=== PATIENT | female | born 1960 | race Caucasian/White ===

== ENCOUNTER 2021-08-27 12:45 | Emergency (ER) | payer OTHER ==
[~2021-08-27] VITALS: Ht 165.1 cm; Wt 100.0 kg
--- NOTE | 2021-08-27 13:16 | PHYS DOC ---
Past History Past Medical History: Diabetes, High Cholesterol, Hypertension, Hypothyroid Past Surgical History: No Surgical History Smoking: Non-smoker Alcohol Use: None Drug Use: None Adult General Chief Complaint Chief Complaint: ALTERED MENTAL STATUS [facility] HPI Patient is a 61-year-old female presenting with son for dysarthria via POV. Onset was first noticed this morning. Patient lives at home with son with last reported known well time being yesterday at 6 PM. Son providing majority of history due to significant dysarthria from patient. Reports she has history of insulin-dependent type 2 diabetes, hypothyroidism, high blood pressure, high cholesterol and seasonal allergies which she has been compliant with all medications for without blood thinners/anticoagulants. States that he ate dinner last night and patient went to her room. This morning, son's girlfriend noticed that patient was having extensive difficulty communicating and articulating words which concerned her prompting them to come into the ER for evaluation today. She has no prior history of CVA. No reported trauma or falls. She is in no pain, just is frustrated that she cannot articulate. This has never happened to her before Review of Systems Review of Systems Fourteen body systems of review of systems have been reviewed. See HPI for pertinent positives and negative responses, other saavedra all other systems are negative, non-pertinent or non-contributory Physical Exam Physical Exam General: Appears well, non toxic, and comfortable Skin: Warm, dry. Normal for ethnicity. HEENT: Atraumatic. PERRLA. Moist mucous membranes. Neck: Trachea midline. Normal ROM. Respiratory: Normal WOB. CTAB w/o w/r/r. No tachypnea. Cardiovascular: Regular rate and rhythm. Normal peripheral perfusion. No edema. Abdomen: Soft. Non tender. No distension. Back: Normal ROM. Musculoskeletal: No swelling or deformity. Neuro: Alert and oriented x 4. MAEE. GCS 15. Normal FNF. Negative pronator drift. Normal heel to smith. Normal Valeria. CN II-XII intact. Normal strength and sensation. Normal speech. Psych: Normal affect and mood. Current Patient Data Vital Signs Vital Signs Date Time Temp Pulse Resp B/P (MAP) Pulse Ox O2 Delivery O2 Flow Rate FiO2 08/27/21 13:32 97.2 80 16 188/105 (132) 98 Vital Signs Date Time Temp Pulse Resp B/P (MAP) Pulse Ox O2 Delivery O2 Flow Rate FiO2 2/18/22 13:58 77 18 152/103 (119) 98 08/27/21 13:32 97.2 Lab Results Laboratory Tests Test 08/27/21 13:07 08/27/21 13:27 08/27/21 13:50 Glucose (Fingerstick) 282 mg/dL White Blood Count 9.4 x10^3/uL Red Blood Count 5.22 x10^6/uL Hemoglobin 15.6 g/dL Hematocrit 46.7 % Mean Corpuscular Volume 90 fL Mean Corpuscular Hemoglobin 30 pg Mean Corpuscular Hemoglobin Concent 34 g/dL Red Cell Distribution Width 13.2 % Platelet Count 217 x10^3/uL Neutrophils (%) (Auto) 69 % Lymphocytes (%) (Auto) 21 % Monocytes (%) (Auto) 6 % Eosinophils (%) (Auto) 3 % Basophils (%) (Auto) 1 % Neutrophils # (Auto) 6.5 x10^3uL Lymphocytes # (Auto) 2.0 x10^3/uL Monocytes # (Auto) 0.6 x10^3/uL Eosinophils # (Auto) 0.3 x10^3/uL Basophils # (Auto) 0.1 x10^3/uL Prothrombin Time 9.6 SEC Prothromb Time International Ratio 0.9 Activated Partial Thromboplast Time 22 SEC Sodium Level 135 mmol/L Potassium Level 4.2 mmol/L Chloride Level 97 mmol/L Carbon Dioxide Level 28 mmol/L Anion Gap 10 Blood Urea Nitrogen 14 mg/dL Creatinine 1.2 mg/dL Estimated GFR (Cockcroft-Gault) 45.5 Glucose Level 280 mg/dL Calcium Level 9.2 mg/dL Troponin I High Sensitivity 5 ng/L SARS-CoV-2 Antigen (Rapid) Negative Current Medications Medications (Trade) Dose Ordered Sig/Kelsie Route PRN Reason Start Time Stop Time Status Last Admin Dose Admin Iohexol (Omnipaque 350 Mg/ml) 100 ml 1X ONCE IV 08/27/21 13:30 08/27/21 13:43 DC 08/27/21 14:00 EKG EKG EKG ordered and interpreted by myself 1405 hrs. as sinus rhythm at 77 bpm, prolonged QRS at 132 otherwise unremarkable intervals, no axis deviation, no STEMI Radiology/Procedures Radiology/Procedures XR CHEST 1V 08/27/2021 1:32 PM INDICATION: Dysarthria COMPARISON: None available TECHNIQUE: Portable frontal view of the chest is provided. FINDINGS: The cardiomediastinal silhouette is within normal limits. Lungs are clear. There are no significant pleural effusions. There is no pulmonary vascular congestion. No pneumothorax. No suspicious osseous abnormality. IMPRESSION: There is no acute cardiopulmonary process. Electronically signed by: Nicole Bradley MD (08/27/2021 2:07 PM) [id number] /////////////////////////////////////////////////////////////////////////// CT HEAD WITHOUT CONTRAST History: Reason: dysarthria / Spl. Instructions: / History: Comparison: None. Procedure: Axial images are obtained of the head from the skull base through the vertex without IV contrast. Findings: At the right cerebellopontine angle there is a slightly hyperdense mass measuring 2.1 cm AP by 2.5 cm transverse by 2 cm craniocaudal. There is no surrounding edema. There is no significant mass effect on the fourth ventricle. There is patchy cortical and subcortical hypodensity in the left parietal occipital lobe. There is minimal generalized cerebral atrophy. The call-white matter differe ntiation is otherwise maintained. No midline shift, acute whemorrhage, or extra- axial fluid collection is identified. Basilar cisterns are patent. Bone windows demonstrate no acute calvarial abnormality. The visualized paranasal sinuses are clear. Mastoid air cells are well aerated. IMPRESSION: 1. There is patchy cortical and subcortical hypodensity in the left parietal oc cipital lobe. Acute/subacute infarct or nonspecific cerebral edema are considerations. Recommend MR brain with and without contrast. 2. There is a slightly hyperdense mass at the right cerebellopontine angle. There is no surrounding edema or significant mass effect on the fourth ventricle. Primary considerations are a meningioma or schwannoma. ///////////////////////////////////////////////////////////////////// CTA HEAD AND NECK W/WO CONTRAST Clinical Indication: Reason: dysarthria, Comparison: CT head without contrast, earlier same day. Technique: Helical CT imaging from inferior to the aortic arch to the skull vertex is performed after 75 cc of Omnipaque [address] angiogram protocol. 3-D MIP reconstructions of the cervical carotid arteries and [place] of [place] are performed. PQRS Compliance Statement - Stenosis calculations for CT, MR and conventional angiography are based upon measurement of the distal ICA diameter in accordance with the NASCET methodology. Stenosis calculations for carotid ultrasound studies are derived from validated velocity criteria which are known to correlate with the NASCET methodology. Findings: No central pulmonary embolus. Aortic arch branches are patent. Common carotid arteries and carotid bifurcations are patent. The cervical internal carotid arteries are patent. The cervical vertebral arteries are patent. The right vertebral artery slightly dominant. There is slight leftward deviation of the basilar artery due to the cerebellopontine angle mass on the right. The posterior cerebral arteries are patent. There is persistent origin of the left posterior cerebral artery. The distal internal carotid arteries are patent, are relatively small caliber. Anterior cerebral arteries are patent. The right middle cerebral arteries are patent. There is abrupt truncation of a left M2 branch which may be due to thrombus, images 240-242. Multiple more distal left middle cerebral artery branches are contrast opacified. This would fit with the findings on noncontrast CT head. The right cerebellar pontine angle mass demonstrates homogeneous enhancement. Dural venous sinuses are unremarkable. The left thyroid lobe is small in size. No obvious opacification of the upper lungs. There are bridging anterior osteophytes of C7-T1. IMPRESSION: 1. There is abrupt truncation of a left M2 middle cerebral artery branch could be due to thrombus. Suggest MRI. 2. There is no significant stenosis of the cervical carotid or vertebral arteries. 3. Homogeneously enhancing right cerebellopontine angle mass. Heart Score C/O Chest Pain: No Risk Factors: Risk Factors: DM, Current or recent (<one month) smoker, HTN, HLP, family history of CAD, obesity. Risk Scores: Risk Factors: DM, Current or recent (<one month) smoker, HTN, HLP, family history of CAD, obesity. Course & Med Decision Making Course & Med Decision Making ABCs unremarkable [id number] glucose, history aided by son at bedside, physical exam and comprehensive ER work-up concerning for acute ischemic stroke with subsequent dysarthria and a high risk patient with numerous comorbid conditions and a cerebellar pontine mass of unknown etiology I contacted [facility] stroke hotline and spoke with Dr. Malik. Case reviewed in addition to images, completed stroke with no indication for TPA, IR or other em ergent transport to their facility. As such, hospitalist at [facility] contacted for transfer Hospitalist accepted patient for hospital transfer. Agreed need for transfer for MRI for better evaluation of completed stroke in addition to questionable brain mass. Multiple attempts were made to contact neurology attending at [facility] but these were unsuccessful I updated patient and son at bedside on entirety of ER work-up and need for hospital transfer for which they were amenable, all questions and concerns addressed prior to transfer via EMS. Of note, patient still having appreciable dysarthria but improved since ER arrival Critical Care Time This patient required critical care. Due to the fact that the patient required a significant amount of one on one physician - patient contact time, ordering and review of studies, arranging urgent treatment with development of a management plan, evaluation of patients response to treatment with frequent reassessments, and discussions with other providers this patient required 35 minutes of critical care time. Critical care time was indicated due to the inherent instability and/or potential for instability in this patient. The critical care time that is allocated to this patient is above and beyond any time spent on any other billable procedures performed on this patient. Dragon Disclaimer Dragon Disclaimer This electronic medical record was generated, in whole or in part, using a voice recognition dictation system. NIH Stroke Scale: NIH Stroke Scale Response (Comments) Value Level of Consciousness: 0 Alert/Responsive 0 LOC Questions: 2 Answers neither correct 2 LOC Commands: 1 Performs one task 1 Best Gaze: 1 Partial gaze palsy 1 Visual: 0 No visual loss 0 Facial Palsy: 0 Normal, symmetrical 0 Motor - Left Arm 0 No drift 0 Motor - Right Arm 0 No drift 0 Motor - Left Leg 0 No drift 0 Motor: Right Leg 0 No drift 0 Limb Ataxia: 0 Absent 0 Sensory: 0 No loss 0 Best Language: 2 Severe aphasia 2 Dysathria: 2 Severe 2 Extinction and Inattention: 0 Normal 0 Total 8 Departure Departure: Impression: Primary Impression: Ischemic stroke Additional Impressions: Pontine lesion Dysarthria due to acute cerebrovascular accident (CVA) Disposition: 02 SHORT TERM HOSPITAL ([facility]) Admitting Physician: Other (dr bernardo) Condition: STABLE Referrals: PCP,UNKNOWN (PCP) Problem Qualifiers VENANCIO SILVERMAN DO Aug 27, 2021 13:16
[2021-08-27] MEDS ORDERED: IOHEXOL 350 MG/ML 100 ML VIAL. IV ONE (13:30)
[2021-08-27 13:39] LABS: BASO # 0.1 x10^3/uL (0.0-0.2); BASO % 1 % (0-3); EOS # 0.3 x10^3/uL (0.0-0.7); EOS % 3 % (0-3); HEMATOCRIT 46.7 % (36.0-47.0); HEMOGLOBIN 15.6 g/dL (12.0-15.5); LYMPH % 21 % (24-48); MEAN CORPUSCULAR HEMOGLOBIN 30 pg (25-35); MEAN CORPUSCULAR HGB CONC 34 g/dL (31-37); MEAN CORPUSCULAR VOLUME 90 fL (79-100); MONO # 0.6 x10^3/uL (0.0-1.1); MONO % 6 % (0-9); NEUT # 6.5 x10^3uL (1.8-7.7); NEUT % 69 % (31-73); PLATELET COUNT 217 x10^3/uL (140-400); RED BLOOD COUNT 5.22 x10^6/uL (3.50-5.40); RED CELL DISTRIBUTION WIDTH 13.2 % (11.5-14.5); WHITE BLOOD COUNT 9.4 x10^3/uL (4.0-11.0)
[2021-08-27 13:50] LABS: CALCIUM 9.2 mg/dL (8.5-10.1); CREATININE 1.2 mg/dL (0.6-1.0); GFR 45.5; POTASSIUM 4.2 mmol/L (3.5-5.1)
--- NOTE | 2021-08-27 14:07 | RAD ---
PQRS Compliance Statement: One or more of the following individualized dose reduction techniques were utilized for this examinat ion: 1. Automated exposure control 2. Adjustment of the mA and/or kV according to patient size 3. Use of iterative reconstruction technique CT HEAD WITHOUT CONTRAST History: Reason: dysarthria / Spl. Instructions: / History: Comparison: None. Procedure: Axial images are obtained of the head from the skull base through the vertex without IV co ntrast. Findings: At the right cerebellopontine angle there is a slightly hyperdense mass measuring 2.1 cm AP by 2.5 cm transverse by 2 cm craniocaudal. There is no surrounding edema. There is no significant mass effect on the fourth ventricle. There is patchy cortical and subcortical hypodensity in the left parietal occipital lobe. There is minimal generalized cerebral atrophy. The call-white matter differentiation is otherwise leandro ntained. No midline shift, acute whemorrhage, or extra-axial fluid collection is identified. Basilar cisterns are patent. Bone windows demonstrate no acute calvarial abnormality. The visualized paranasal sinuses are clear. Mastoid air cells are well aerated. IMPRESSION: 1. There is patchy cortical and subcortical hypodensity in the left parietal occipital lobe. Acute/s ubacute infarct or nonspecific cerebral edema are considerations. Recommend MR brain with and without contrast. 2. There is a slightly hyperdense mass at the right cerebellopontine angle. There is no surrounding edema or significant mass effect on the fourth ventricle. Primary considerations are a meningioma or schwannoma. FOR INTERNAL CODING PURPOSES Critical result: Findings discussed with VENANCIO SILVERMAN DO at 08/27/2021 1:57 PM. RESULT CODE: (C) Electronically signed by: Helio Wilhelm MD (08/27/2021 2:05 PM) [facility]
--- NOTE | 2021-08-27 14:10 | RAD ---
XR CHEST 1V 08/27/2021 1:32 PM INDICATION: Dysarthria COMPARISON: None available TECHNIQUE: Portable frontal view of the chest is provided. FINDINGS: The cardiomediastinal silhouette is within normal limits. Lungs are clear. There are no significant pleural effusions. There is no pulmonary vascular congestion. No pneumothora x. No suspicious osseous abnormality. IMPRESSION: There is no acute cardiopulmonary process. Electronically signed by: Nicole Bradley MD (08/27/2021 2:07 PM) [id number]
--- NOTE | 2021-08-27 14:16 | EKG ---
[address] [address] Test Date: 2021-08-27 Test Time: 13:57:10 Pat Name: NOAH KEARNEY Department: Room: Gender: F Retail District Manager: MÓNICA : 1960 Requested By: VENANCIO SILVERMAN Order Number: [id number] Reading MD: Long Rinaldi Measurements Intervals [place] Rate: 77 P: 12 UT: 178 QRS: 63 QRSD: 132 T: 3 QT: 404 QTc: 459 Interpretive Statements SINUS RHYTHM RIGHT BUNDLE BRANCH BLOCK Electronically Signed On 08-29-2021 13:59:38 [employer] by Long Rinaldi
--- NOTE | 2021-08-27 14:19 | RAD ---
PQRS Compliance Statement: One or more of the following individualized dose reduction techniques were utilized for this examinat ion: 1. Automated exposure control 2. Adjustment of the mA and/or kV according to patient size 3. Use of iterative reconstruction technique CTA HEAD AND NECK W/WO CONTRAST Clinical Indication: Reason: dysarthria, Comparison: CT head without contrast, earlier same day. Technique: Helical CT imaging from inferior to the aortic arch to the skull vertex is performed after 75 cc of Omnipaque [address] angiogram protocol. 3-D MIP reconstructions of the cervi kya carotid arteries and [place] of [place] are performed. PQRS Compliance Statement - Stenosis calculations for CT, MR and conventional angiography are based u samir measurement of the distal ICA diameter in accordance with the NASCET methodology. Stenosis calcu lations for carotid ultrasound studies are derived from validated velocity criteria which are known t o correlate with the NASCET methodology. Findings: No central pulmonary embolus. Aortic arch branches are patent. Common carotid arteries and carotid bi furcations are patent. The cervical internal carotid arteries are patent. The cervical vertebral yashira marilee are patent. The right vertebral artery slightly dominant. There is slight leftward deviation of the basilar artery due to the cerebellopontine angle mass on the right. The posterior cerebral arteri es are patent. There is persistent origin of the left posterior cerebral artery. The distal int ernal carotid arteries are patent, are relatively small caliber. Anterior cerebral arteries are paten t. The right middle cerebral arteries are patent. There is abrupt truncation of a left M2 branch whic h may be due to thrombus, images 240-242. Multiple more distal left middle cerebral artery branches a re contrast opacified. This would fit with the findings on noncontrast CT head. The right cerebellar pontine angle mass demonstrates homogeneous enhancement. Dural venous sinuses ar e unremarkable. The left thyroid lobe is small in size. No obvious opacification of the upper lungs. There are bridging anterior osteophytes of C7-T1. IMPRESSION: 1. There is abrupt truncation of a left M2 middle cerebral artery branch could be due to thrombus. S uggest MRI. 2. There is no significant stenosis of the cervical carotid or vertebral arteries. 3. Homogeneously enhancing right cerebellopontine angle mass. FOR INTERNAL CODING PURPOSES Critical result: Findings discussed with VENANCIO SILVERMAN DO at 08/27/2021 1:57 PM. RESULT CODE: (C) 1. Electronically signed by: Helio Wilhelm MD (08/27/2021 2:17 PM) [facility]
[2021-08-27] MEDS ORDERED: IV NORMAL SALINE 1,000ML 1,000 ML IV ONE (16:30)
[2021-08-27 17:00] VITALS: BP 176/88
== END 2021-08-27 17:13 | disposition short-term general hospital (02) ==
LOC: ER 12:45
DX: I63.9 Cerebral infarction, unspecified (principal); G93.89 Other specified disorders of brain; R47.1 Dysarthria and anarthria; E11.9 Type 2 diabetes mellitus without complications; E78.00 Pure hypercholesterolemia, unspecified; I10 Essential (primary) hypertension; E03.9 Hypothyroidism, unspecified; Z20.822 Contact with and (suspected) exposure to COVID-19
CPT/HCPCS: 36415; 70450; 70496; 70498; 71045; 80048; 82947; 84484; 85025; 85610; 85730; 87426; 93005; 96360; 99291; C9803; J7030; Q9967; U0003; 99285